=== PATIENT | male | born 1990 ===

== ENCOUNTER 2020-06-03 14:52 | Outpatient (CLI) | payer OTHER, SELFPAY ==
--- NOTE | ~2020-06-03 | CT_ITS ---
EXAMINATION: CT abdomen pelvis w con DATE: 06/03/2020 15:24 INDICATION: Left lower quadrant abdominal pain TECHNIQUE: Computed tomography (CT) of the abdomen and pelvis was performed with 100 cc Omnipaque 350 intravenous contrast. Automated exposure control and iterative reconstruction technique were employe d. Exam dose: 1688.64 mGy-cm total exam DLP. COMPARISON: None. FINDINGS: There is mild discoid atelectasis or scarring in the left lower lobe. No infiltrate or cons olidation or mass lesion of the included lower lung zones. Normal heart size. No pericardial or pleural effusion. Diffuse hepatic steatosis minimal pericholecystic sparing. No hepatic, splenic, pancreatic, adrenal o r renal space-occupying mass lesion is evident. Normal caliber of the abdominal aorta. No intraperitoneal or retroperitoneal or pelvic mass lesion or adenopathy or ascites. The urinary bladder and prostate gland are unremarkable. There is diverticulosis but no evidence of diverticulitis. No evidence of appendicitis. No bowel obst ruction, bowel wall thickening, pneumatosis or intraperitoneal free air. Small fat-containing umbilical hernia. Degenerative spurring at T7-T9. No suspicious osteolytic or osteoblastic lesions. IMPRESSION: Hepatic steatosis Diverticulosis of the colon Reviewed, dictated and finalized at [facility]. Reviewed, dictated and finalized at [facility].
== END 2020-06-03 14:53 | disposition home or self-care (01) ==
PROVIDERS: PCP Family Medicine; Visit Provider Family Medicine
DX: R10.32 Left lower quadrant pain (principal); K57.30 Diverticulosis of large intestine without perforation or abscess without bleeding; K76.0 Fatty (change of) liver, not elsewhere classified
CPT/HCPCS: 74177; Q9967

== ENCOUNTER 2023-12-11 14:56 | Emergency (ER) | payer OTHER, SELFPAY ==
[2023-12-11 15:15] VITALS: BP 151/112; PULSE 81; RESP 16; TEMP 36.2; O2SAT 100
--- NOTE | 2023-12-11 15:23 | ED_ITS ---
HPI - Back Pain/Injury General Chief Complaint: Abdominal Pain Stated Complaint: Bilateral Flank Pain Related Data Home Medications Medication Instructions Recorded Confirmed No Home Medications 12/11/23 12/11/23 Allergies Allergy/AdvReac Type Severity Reaction Status Date / Time Penicillins Allergy Unknown Hives Verified 12/11/23 15:15 [facility] Past Medical History Medical History (Updated 07/25/22 @ 09:42 by Bebe Dudley NP) Asthma Costochondritis Exercise-induced asthma Hypersomnia Left lower quadrant abdominal pain Migraine with aura Migraine without aura and without status migrainosus, not intractable Morbid obesity with BMI of 40.0-44.9, adult Screening for diabetes mellitus Seasonal allergic rhinitis Wellness examination Family History Family History Father Hypertension Mother Irregular heart beat Social History Social History (Updated 07/14/22 @ 13:23 by MICHAEL De La Torre) Smoking status: Never smoker Alcohol intake: current Alcohol use details: Socially Substance use: never Course Vital Signs Vital signs: Vital Signs Temperature 97.1 F L 12/11/23 15:15 Pulse Rate 81 12/11/23 15:15 Respiratory Rate 16 12/11/23 15:15 Blood Pressure 151/112 H 12/11/23 15:15 Pulse Oximetry 100 12/11/23 15:15 Oxygen Delivery Room Air 12/11/23 15:15 Temperature 97.1 F L 12/11/23 15:15 Pulse Rate 81 12/11/23 15:15 Respiratory Rate 16 12/11/23 15:15 Blood Pressure 151/112 H 12/11/23 15:15 Pulse Oximetry 100 12/11/23 15:15 Oxygen Delivery Room Air 12/11/23 15:15 Discharge Plan Discharge Prescriptions: No Action No Home Medications Follow-up/Referrals: Foster Huang MD [Primary Care Provider] -
--- NOTE | 2023-12-11 15:36 | ED.ABDPAIN ---
HPI - Abdominal Pain General Chief Complaint: Abdominal Pain Stated Complaint: Bilateral Flank Pain Time Seen by Provider: 12/11/23 15:27 Mode of arrival: ambulatory Limitations: no limitations History of Present Illness HPI narrative: 33-year-old male presents with concern for bilateral lateral abdominal pain for 1 week. He denies any exacerbating or relieving factors. The pain is not worsened by movement, tenderness. He has not taken any medications for relief of pain. He reports it is dull in nature. He denies nausea, vomiting, back pain. He denies fever. Reports yesterday he had chills and sweats 1 time. He reports 2 weeks ago he had stomach ache with nausea but that has resolved. He reports he had changed his diet when he had that stomach ache and has been drinking more water so he is urinating slightly more frequently. He denies dysuria, abnormal penile discharge, testicle warmth, redness, swelling, tenderness. He denies diarrhea or constipation. Reports his bowels are smaller than usual. MD elicited complaint: abdominal pain Related Data Home Medications Medication Instructions Recorded Confirmed No Home Medications 12/11/23 12/11/23 Allergies Allergy/AdvReac Type Severity Reaction Status Date / Time Penicillins Allergy Unknown Hives Verified 12/11/23 15:15 Review of Systems Review of Systems: CONSTITUTIONAL: Denies malaise, fever. Reports chills and sweats 1 time CARDIOVASCULAR: Denies chest pain, palpitations, or edema. RESPIRATORY: Denies cough or dyspnea. GASTROINTESTINAL: Reports bilateral lateral abdominal pain. Denies nausea, vomiting, diarrhea, bloody, or mucous stools. GENITOURINARY: Denies dysuria or hematuria. Reports slight increase in urine frequency SKIN: Denies rash or itching. MUSCULOSKELETAL: Denies back pain, joint pain, or myalgia. NEUROLOGIC: Denies numbness, weakness, or headache. All systems reviewed & are unremarkable except as noted in HPI and below PMFSH Past Medical History Medical History (Updated 12/11/23 @ 16:07 by Tete Raygoza NP) Asthma Costochondritis Exercise-induced asthma Hypersomnia Left lower quadrant abdominal pain Migraine with aura Migraine without aura and without status migrainosus, not intractable Morbid obesity with BMI of 40.0-44.9, adult Screening for diabetes mellitus Seasonal allergic rhinitis Wellness examination Family History Family History Father Hypertension Mother Irregular heart beat Social History Social History (Updated 07/14/22 @ 13:23 by MICHAEL De La Torre) Smoking status: Never smoker Alcohol intake: current Alcohol use details: Socially Substance use: never Comments At time of signature, agree with nursing past medical, surgical, social and family history. There is no relevant family history pertinent to the presenting complaint Exam Narrative: GENERAL: Well-appearing, well-nourished, and in no acute distress. HEAD: Normocephalic, atraumatic. EYES: PERRLA, sclera clear, and EOMI. No nystagmus. ENT: Nares clear, turbinates pink, no rhinorrhea or epistaxis. Mucous membranes moist. NECK: Supple. No lymphadenopathy. CHEST: No respiratory distress. Clear to auscultation. No bony deformities, no asymmetry. Speaks in full sentences. HEART: Regular rate and rhythm. No murmur heard. Normal peripheral pulses. ABDOMEN: Obese, Soft, nontender, nondistended, normal active bowel sounds, no palpable masses. EXTREMITIES: Normal range of motion. No edema. Normal strength and sensation. SKIN: Warm, dry, no visible rash. NEURO: Alert and oriented x3. PSYCH: Normal mood and affect Course Course Emergency Course: Discussed exam findings with patient, possible diagnoses, most likely diagnosis is that the patient may have constipation given his recent GI illness and decreased amount of bowel movements. We will try a [id number] laxatives and patient w
[2023-12-11 15:46] VITALS: BP 128/81; PULSE 81
== END 2023-12-11 16:11 | disposition home or self-care (01) ==
PROVIDERS: Emergency Provider Nurse Practitioner; PCP Family Medicine
DX: R10.31 Right lower quadrant pain (principal); R10.32 Left lower quadrant pain; J45.909 Unspecified asthma, uncomplicated; E66.01 Morbid (severe) obesity due to excess calories; Z68.35 Body mass index [BMI] 35.0-35.9, adult
CPT/HCPCS: 81003; 99212; G0463